=== PATIENT | male | born 1980 | race African-American/Black ===

== ENCOUNTER 2018-11-22 18:36 | Emergency (ER) | payer SELFPAY ==
[2018-11-22] MEDS ORDERED: Proparacaine 0.5% Opth 15 ML BOT ONE (20:02)
[2018-11-22] MEDS ORDERED: Fluorescein Opthalmic Strip ONE (20:02)
[2018-11-22] MEDS ORDERED: Gentamicin Ophth Soln 0.3% 5 ml Bottle ONE (20:37)
== END 2018-11-22 21:45 | disposition home or self-care (01) ==
LOC: ERS 18:36
DX: S05.02XA Injury of conjunctiva and corneal abrasion without foreign body, left eye, initial encounter (principal); X58.XXXA Exposure to other specified factors, initial encounter
CPT/HCPCS: 99283

== ENCOUNTER 2019-06-25 02:27 | Emergency (ER) | payer SELFPAY ==
[2019-06-25 03:17] LABS: Bilirubin Negative (Negative); Blood, Urine Negative (Negative); Clarity Clear (Clear); Glucose, Urine (Dipstick) Normal (Negative); Leukocyte Negative Leu/uL (Negative); Nitrite Negative (Negative); Protein, Urine (Dipstick) 10 mg/dL (Neg-Trace); Urobilinogen Normal mg/dL (Less than 2)
--- NOTE | 2019-06-25 09:24 | ULT ---
PRELIMINARY REPORT/[facility]/EMERGENCY AFTER HOURS PROCEDURE: EXAM: US Scrotum. CLINICAL HISTORY: HX: LT TESTICLE PAIN. TECHNIQUE: Real-time ultrasound of the scrotum with color Doppler and image documentation. COMPARISON: None provided. FINDINGS: RIGHT TESTICLE: No mass. Normal Doppler flow. Measures 4.8 x 2.4 x 2.9 cm LEFT TESTICLE: No mass. Normal Doppler flow. Measures 4.4 x 2.4 x 2.5 cm EPIDIDYMIDES: Unremarkable. A small right epididymal cyst is seen SCROTUM: Small bilateral hydroceles are noted. IMPRESSION: Small bilateral hydroceles with no evidence for torsion ELECTRONICALLY SIGNED BY: Oneal Fuentes MD Jun 25, 2019 3:52:02 AM [employer] This report is intended for review by the ordering physician only, in accordance of law. If you recei ve this report in error, please call [facility] at [phone]. FINAL REPORT EMERGENCY AFTER HOURS TESTICULAR ULTRASOUND: FINDINGS/IMPRESSION: I agree with the findings and impression given in the preliminary report per [facility] physici an. Small bilateral hydroceles without other intrascrotal abnormality.
[2019-06-26 00:03] LABS: Chlam.trachomatis by PCR,Urine Not Detected (NotDetected)
== END 2019-06-25 04:57 | disposition home or self-care (01) ==
LOC: ERS 02:27
DX: N50.812 Left testicular pain (principal); R30.0 Dysuria
CPT/HCPCS: 76870; 81003; 87491; 87591; 93976

== ENCOUNTER 2023-04-27 23:35 | Emergency (ER) | payer SELFPAY | END 2023-04-28 00:14 | LOC: EEVIPCON 23:35 → ERS 23:35 | DX: S00.12XA Contusion of left eyelid and periocular area, initial encounter (principal); H11.32 Conjunctival hemorrhage, left eye; Y35.819A Legal intervention involving manhandling, unspecified person injured, initial encounter | CPT/HCPCS: 99283 ==